=== PATIENT | female | born 1990 ===

== ENCOUNTER 2018-05-30 19:43 | Emergency (ER) | payer MEDICAID ==
[2018-05-30 19:58] VITALS: RESP 18
[2018-05-30 20:44] LABS: SQUAMOUS EPITHIAL 2 /hpf (0-5); URINE BILIRUBIN NEGATIVE (NEGATIVE); URINE BLOOD NEGATIVE (NEGATIVE); URINE CLARITY Clear (Clear); URINE COLOR Straw (YELLOW); URINE GLUCOSE (UA) NORMAL (Normal); URINE LEUKOCYTE ESTERASE NEG Leu/uL (Negative); URINE PROTEIN NEGATIVE (NEGATIVE); URINE UROBILINOGEN NORMAL mg/dL (0.2-1.0)
[2018-05-30 20:48] LABS: HCG,QUALITATIVE URINE POSITIVE (NEGATIVE)
--- NOTE | 2018-05-30 21:08 | C.PDOC ---
History Of Present Illness 27 year old female presents to ED with complaint of lower pelvic and back discomfort consistent with menstrual cramps for 2 days. Patient took test at home 4 days and was positive. Patient is 5 weeks by dates. ,P:1 ,A:1 . Patient denies any vaginal bleeding. Time Seen by Provider: 05/30/18 20:01 Chief Complaint (Nursing): Abdominal Pain History Per: Patient History/Exam Limitations: no limitations Onset/Duration Of Symptoms: Days (2) Current Symptoms Are (Timing): Still Present Location Of Pain/Discomfort: Other (lower pelvic and back) Quality Of Discomfort: Cramping Associated Symptoms: denies: Fever, Chills, Nausea, Vomiting, Urinary Symptoms : 3 Para: 1 Miscarriage: 1 Past Medical History Reviewed: Historical Data, Nursing Documentation, Vital Signs Vital Signs: Last Vital Signs Temp 98.1 F 05/30/18 19:55 Pulse 81 05/30/18 19:55 Resp 18 05/30/18 19:55 BP 120/71 05/30/18 19:55 Pulse Ox 100 05/30/18 19:55 - Medical History PMH: No Chronic Diseases Surgical History: No Surg Hx Family History: States: Unknown Family Hx - Social History Hx Alcohol Use: No Hx Substance Use: No - Immunization History Hx Tetanus Toxoid Vaccination: Yes Hx Influenza Vaccination: No Hx Pneumococcal Vaccination: No Review Of Systems Constitutional: Negative for: Fever, Chills, Weakness Gastrointestinal: Negative for: Nausea, Vomiting, Abdominal Pain, Diarrhea Genitourinary: Positive for: Pelvic Pain (lower). Negative for: Vaginal Bleeding Musculoskeletal: Positive for: Back Pain (lower) Neurological: Negative for: Weakness, Numbness, Dizziness Physical Exam - Physical Exam Appears: Well, Non-toxic, No Acute Distress Skin: Normal Color, Warm, Dry Head: Atraumatic, Normacephalic Neck: Normal ROM, Supple Chest: Symmetrical, No Deformity Respiratory: No Accessory Muscle Use Gastrointestinal/Abdominal: Soft, No Tenderness Extremity: Capillary Refill (<2 seconds) Extremity: Bilateral: Atraumatic, Normal Color And Temperature Pulses: Left Radial: Normal, Right Radial: Normal Neurological/Psych: Oriented x3, Normal Speech, Normal Cognition ED Course And Treatment - Laboratory Results Result Diagrams: 05/30/18 21:18 05/30/18 21:18 Lab Results: Urine Color Straw (YELLOW) 05/30/18 20:25 Urine Clarity Clear (Clear) 05/30/18 20:25 Urine pH 7.0 (5.0-8.0) 05/30/18 20:25 Ur Specific [place] 1.012 (1.003-1.030) 05/30/18 20:25 Urine Protein Negative mg/dL (NEGATIVE) 05/30/18 20:25 Urine Glucose (UA) Normal mg/dL (Normal) 05/30/18 20: Urine Ketones Negative mg/dL (NEGATIVE) 05/30/18 20:25 Urine Blood Negative (NEGATIVE) 05/30/18 20:25 Urine Nitrate Negative (NEGATIVE) 05/30/18 20: Urine Bilirubin Negative (NEGATIVE) 05/30/18 20: Urine Urobilinogen Normal mg/dL (0.2-1.0) 05/30/18 20:25 Ur Leukocyte Esterase Neg Ayesha/uL (Negative) 05/30/18 20:25 Urine WBC (Auto) < 1 /hpf (0-5) 05/30/18 20:25 Urine RBC (Auto) < 1 /hpf (0-3) 05/30/18 20:25 Ur Squamous Epith Cells 2 /hpf (0-5) 05/30/18 20:25 Urine HCG, Qual Positive (NEGATIVE) 05/30/18 20:25 Urine HCG, Qual Positive (NEGATIVE) 05/30/18 20:25 Lab Interpretation: Normal (QHCG 40,740, A+) Urine POC: Positive O2 Sat by Pulse Oximetry: 100 (RA) Progress Note: Labs ordered with UA and U-preg for patient. Transvaginal US ordered for patient. Reevaluation Time: 23:01 Reassessment Condition: Improved Medical Decision Making Medical Decision Making: early IUP preg c/w 6 w 1 D Disposition Doctor Will See Patient In The: Office Counseled Patient/Family Regarding: Studies Performed, Diagnosis - Disposition Disposition: HOME/ ROUTINE Disposition Time: 23:02 Condition: GOOD Forms: [facility] (Yi) - Clinical Impression Clinical Impression: - Scribe Statement The provider has reviewed the documentation as recorded by the Scribe (Mary Benitez) All medical record entries made by the Scribe were at my direction and personally dictated by me. I have reviewed the chart and agree that the record accurately reflects my personal performance of the history, physical exam, medical decision making, and the department course for this patient. I have also personally directed, reviewed, and agree with the discharge instructions and disposition.
[2018-05-30 21:26] LABS: BASO % 0.4 % (0.0-2.0); EOS # 0.1 K/uL (0.0-0.7); EOS % 0.6 % (0.0-4.0); HEMOGLOBIN 12.8 g/dL (11.0-16.0); LYMPH # 3.5 K/uL (1.0-4.3); LYMPH % 38.4 % (20.0-40.0); MEAN CELL VOLUME 92.7 fL (81.0-99.0); MEAN CORPUSCULAR HEMOGLOBIN 30.3 pg (27.0-31.0); MEAN CORPUSCULAR HGB CONC 32.7 g/dL (33.0-37.0); MONO # 0.5 K/uL (0.0-0.8); MONO % 5.6 % (0.0-10.0); RBC 4.22 Mil/uL (3.80-5.20); RED CELL DISTRIBUTION WIDTH 13.1 % (11.5-14.5)
[2018-05-30 21:39] LABS: ALB/GLOB RATIO 1.8 (1.0-2.1); ALBUMIN 4.9 g/dL (3.5-5.0); ALT/SGPT 26 U/L (9-52); AST/SGOT 22 U/L (14-36); BLOOD UREA NITROGEN 10 mg/dL (7-17); CALCIUM 9.7 mg/dl (8.6-10.4); GFR NON-AFRICAN AMERICAN > 60
[2018-05-30 23:54] VITALS: BP 121/76; PULSE 84; TEMP 98.2; O2SAT 98
--- NOTE | 2018-05-31 09:59 | US ---
Date of service: 05/30/2018 PROCEDURE: OB Pelvic Ultrasound HISTORY: 5 wks, Pelvic pain 04/15/2018 COMPARISON: None available. FINDINGS: UTERUS: Gestational sac: Sac diameter 18 mm equal to 6 weeks 1 day gestational age. [place]-rump length 4 mm equivalent to 6 weeks 1 day. Heart rate: 112 bpm. age (Ultrasound estimated): 6 weeks 1 day Jyoti-gestational hemorrhage: Small hemorrhage, 5 x 9 x 15 mm. Date of delivery (Ultrasound estimated) : 01/22/2019 Uterus measures 10.5 x 4.9 x 5.4 cm. Normal in size and appearance. CERVIX: Measures 3.6 cm. Long and closed. No cervical abnormality seen. RIGHT OVARY: Measures 4.0 x 2.1 x 3.2 cm. No mass lesion. Normal flow. LEFT OVARY: Measures 3.5 x 2.8 x 3.4 cm. No solid mass. Normal flow. Left ovarian corpus luteum, 1.8 x 2.1 x 2.2 cm. FREE FLUID: None. OTHER FINDINGS: None. IMPRESSION: Single live intrauterine gestation of approximately 6 weeks 1 day gestational age. Very small subchorionic hemorrhage. heart rate 112 beats per minute. Cervix long and closed. No uterine mass. The preliminary findings for this examination were reported by [facility] at 10:55 p.m. on 05/30/2018. There is concurrence of this report with the preliminary findings.
== END 2018-05-30 23:25 | disposition home or self-care (01) ==
LOC: C.ER 19:43
DX: O26.91 Pregnancy related conditions, unspecified, first trimester (principal); Z3A.01 Less than 8 weeks gestation of pregnancy